=== PATIENT | male | born 1985 | race Two or more races ===

== ENCOUNTER 2025-07-09 11:08 | Emergency (ER) | payer MEDICAID, SELFPAY ==
[2025-07-09 11:09] VITALS: BMI 39.4
[2025-07-09 11:55] VITALS: BP 135/82; PULSE 87; RESP 20; TEMP 36.8; O2SAT 93
--- NOTE | 2025-07-09 12:07 | XR_ITS ---
EXAMINATION: PA lateral chest 2 views TECHNIQUE: Upright PA lateral chest 2 views Date and time: July 09, 2025, 12:25 p.m. INDICATIONS: Shortness of breath beginning 1 week ago. FINDINGS: Significant left lower lobe pneumonia. Normal heart size. Right lung clear. Osseous structures intact IMPRESSION: Significant left base pneumonia
--- NOTE | 2025-07-09 12:07 | EKG_ITS ---
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
--- NOTE | 2025-07-09 12:08 | PD.EDRME ---
Rapid Medical Screening Exam RME Arrival date/time: 07/09/25 11:08 Chief Complaint: Shortness of Breath/Dyspnea Vital signs: Vital Signs Temperature 98.3 F 07/09/25 11:55 Pulse Rate 87 07/09/25 11:55 Respiratory Rate 20 07/09/25 11:55 Blood Pressure 135/82 H 07/09/25 11:55 Pulse Oximetry (%) 93 L 07/09/25 11:55 Oxygen Delivery Method Room Air 07/09/25 11:55 RME Narrative: 40-year-old male complaining of cough with productive sputum, left-sided chest pain, shortness of breath x 1 week. I briefly performed a screening evaluation to initiate work-up and expedite care. Complete history, physical exam, and plan of care is deferred to the provider in the main ED. Exam: Head: Normocephalic, atraumatic. Respiratory: Normal effort. No respiratory distress or accessory muscle use. Neuro: Speech normal. Skin: Warm, dry, normal color. Psych: Pleasant. Normal affect. Cooperative. Clinical Impression: Cough
[2025-07-09 12:33] VITALS: PULSE 86
[2025-07-09] MEDS: IPRATROPIUM RT 0.5 MG/ 2.5 ML NEBU INH (12:33)
[2025-07-09] MEDS: ALBUTEROL RT 2.5 MG/0.5 ML NEBU 5 MG INH (12:33)
[2025-07-09 12:34] VITALS: PULSE 93; RESP 20; O2SAT 93
[2025-07-09] MEDS: ACETAMINOPHEN w/COD 300-30 TABLET 2 TAB PO (13:09)
[2025-07-09] MEDS: AZITHROMYCIN 250 MG TABLET 500 MG PO (13:36)
[2025-07-09] MEDS: cefTRIAXone 1,000 MG, LIDOCAINE 1% 20 ML 2.1 ML IM (13:36)
--- NOTE | 2025-07-09 13:50 | EDNOTE_ITS ---
Upper Respiratory Inf. RME/HPI General Chief Complaint: Shortness of Breath/Dyspnea Stated Complaint: DIFF BREATHING/COUGH x 13 DAYS Time Seen by Provider: 07/09/25 12:30 Arrival date/time: 07/09/25 11:08 RME / HPI RME / HPI Narrative: See [facility] for Dr. Hung's HPI Documentation. Related Data Previous Rx's ?Medication ?Instructions ?Recorded naproxen 500 mg tablet 500 mg PO BID PRN pain #14 t abs 08/17/23 acetaminophen 300 mg-codeine 30 mg 2 tab PO Q8H PRN pa in #20 tabs 07/09/25 tablet albuterol sulfate 90 mcg/actuation 2 puff inhalation Q 6H PRN 07/09/25 aerosol inhaler shortness of breath or wheez ing #8.5 grams azithromycin 500 mg tablet 500 mg PO QDAY 3 days #3 ta bs 07/09/25 (Zithromax TRI-LUIS) cefdinir 300 mg capsule 300 mg PO BID #14 caps 07/09 prednisone 50 mg tablet 50 mg PO BID 3 days #6 tabs 07/09/25 Allergies Allergy/AdvReac Type Severity Reaction Status Date / Time No Known Allergies Allergy Verified 07/09/25 11:12 Review of Systems Review of Systems Systems Reviewed: All systems reviewed, normal except as documented Past Medical History Social History SMOKING STATUS: Never smoker SUBSTANCE USE: does not use ALCOHOL: Never ED Exam Narrative Physical exam: See [facility] for Dr. Hung's HPI Documentation. Course Quality Measures none Orders Category Date Time Status Bedside COVID-19 Antigen Test NOW Care 07/09/25 12:30 Completed EKG (ED ONLY) *Do not use* NOW Care 07/09/25 12:07 Completed EKG (ED Only) Stat Exams 07/09/25 12:07 Draft XR chest 2V Stat Exams 07/09/25 12:07 Completed Influenza A & B Rapid Panel Stat Lab 07/09/25 13:46 Completed ACETAMINOPHEN w/COD 300-30 [Tylenol w/Cod #3] Med 07/09/25 12:30 Discontinued 2 tab PO X1 ONE ALBUTEROL RT 0.5ml [Proventil Rt 0.5ml] Med 07/09/25 12:09 Discontinued 5 mg INH X1 ONE Azithromycin Po [Zithromax PO] Med 07/09/25 13:04 Discontinued 500 mg PO X1 ONE Ipratropium [place] Rt Britt [Atrovent Rt Britt] Med 07/09/25 12:09 Discontinued 0.5 mg INH X1 ONE Sodium Chloride Rt Britt 0.9% [NS Rt Britt 0.9%] Med 07/09/25 12:09 Discontinued 3 ml INH PRN PRN cefTRIAXone [Rocephin] 1,000 mg Med 07/09/25 13:04 Discontinued Lidocaine 1% 20 ml [Xylocaine 1% 20 ML] 2.1 ml IM X1 predniSONE Med 07/09/25 12:30 Discontinued 60 mg PO X1 ONE Vital Signs Vital signs: Vital Signs Temperature 98.3 F 07/09/25 11:55 Pulse Rate 87 07/09/25 11:55 Respiratory Rate 20 07/09/25 11:55 Blood Pressure 135/82 H 07/09/25 11:55 Pulse Oximetry (%) 93 L 07/09/25 11:55 Oxygen Delivery Method Room Air 07/09/25 11:55 Upper Respiratory Infection MDM Narrative MDM Narrative:: This section includes all my notes and documentations, including HPI, PE, and ED course. Vahid Hung MD HPI: 40-year-old male here with about 10-day history of worsening cough, productive cough, purulent sputum, and dyspnea. No other complaints. ROS: All negative except as documented in HPI. Physical Exam: General: Alert and oriented. Hacking cough noted. Eyes: Conjunctivae and lids clear. ENT: No nasal congestion. Pharynx normal. TM normal bilaterally. Neck: Supple. Heart: RRR. Lungs: No respiratory distress. Decreased air movement with severe rhonchi. Abdomen: Soft and nontender. Back: No CVA tenderness. Skin: Warm and dry. Neuro: Alert and oriented X 3. I reviewed all diagnostic test results: My interpretation of the EKG is: Sinus rhythm (83 bpm) with nonspecific ST-T changes. My interpretation of the chest x-ray is left base infiltrates. Covid & Influenza negative. At this point, diagnoses include: Pneumonia with severe bronchospasm Treatment here included: Prednisone 60 mg Neb treatments Two Tylenol #3 Rocephin 1 g IM Zithromax 500 mg Significant improvement noted. Recommended outpatient treatment. Based on my best medical judgment, made decision no further evaluation or treatment indicated at this time. Patient understands and agrees to the discharge instructions customized and printed, see below. Discharge instructions from Dr. Hung: --No physical exertion for 3 days to help rest the lungs. ?No smoking or exposure to smoking or pets or dust or cold or humidity. --Zithromax and cefdinir to kill the germs causing the pneumonia. Can stop penicillin, this will take care of your strep throat. --Prednisone to help decrease the swelling in the airways. --Albuterol 2 puffs with a spacer every 4-6 hours for 3 days to help keep the airways open. Then as needed for cough or shortness of breath. --See a private doctor on 07/08/2025 for recheck. Ask for help until you are completely better. --Seek immediate medical care with worsening or with any concerns. Vahid Hung MD Patient data External records reviewed:: [facility] previous records Clinical information provided by:: patient Social determinants that could affect healthcare access:: none Patient has the following chronic illnesses:: No known PMHx, surgeries, daily medications, or known allergies. How is presenting disease/condition affected by chronic disease/condition?: no chronic disease Evaluation data The following diagnostics were reviewed and interpreted by me:: lab results, radiology exam(s) and EKG tracing(s) Lab and/or radiology exams considered but not ordered:: none Interpretation Summary: I reviewed all diagnostic test results: My interpretation of the EKG is: Sinus rhythm (83 bpm) with nonspecific ST-T changes. My interpretation of the chest x-ray is left base infiltrates. Covid & Influenza negative. Medications / Prescriptions Medications or Prescriptions considered but not ordered:: none Medication administrations:: Medication Administration History Discontinued Medications Acetaminophen/Codeine Phosphate (Acetaminophen W/Cod 300-30 Tablet) 2 tab PO X1 ONE Stop: 07/09/25 12:31 Last Admin: 07/09/25 13:09 Dose: 2 tab Documented By: Albuterol (Albuterol Rt 2.5 Mg/0.5 Ml Nebu) 5 mg INH X1 ONE Stop: 07/09/25 12:10 Last Admin: 07/09/25 12:33 Dose: 5 mg Documented By: STEVENSON Azithromycin (Azithromycin 250 Mg Tablet) 500 mg PO X1 ONE Stop: 07/09/25 13:05 Last Admin: 07/09/25 13:36 Dose: 500 mg Documented By: Ceftriaxone Sodium 1,000 mg/ (Lidocaine HCl 2.1 ml) 0 mg IM X1 ONE Stop: 07/09/25 13:05 Last Admin: 07/09/25 13:36 Dose: 1,000 mg Documented By: Ipratropium [place] (Ipratropium Rt 0.5 Mg/ 2.5 Ml Nebu) 0.5 mg INH X1 ONE Stop: 07/09/25 12:10 Last Admin: 07/09/25 12:33 Dose: 0.5 mg Documented By: STEVENSON Prednisone (Prednisone 20 Mg Tablet) 60 mg PO X1 ONE Stop: 07/09/25 12:31 Last Admin: 07/09/25 13:09 Dose: 60 mg Documented By: Sodium Chloride (Sodium Chloride Rt Britt 0.9% 3 Ml Nebu) 3 ml INH PRN PRN PRN Reason: SOLN Stop: 08/08/25 12:08 Treatment here included: Prednisone 60 mg Neb treatments Two Tylenol #3 Rocephin 1 g IM Zithromax 500 mg Consultations Consultation(s) initiated? (list below): No Diagnosis Upper Respiratory Differential Diagnosis: upper respiratory infection, viral infection, bronchitis and influenza Most likely diagnosis given after review of the tests above:: Pneumonia Admission Indicated Admission indicated?: not indicated Explain why admission is indicated or not indicated:: With significant improvement and no condition needing emergent intervention, there was no indication for admission. Admission Request Was there a request for admission?: No Disposition Plan Disposition Plan: Discharge Discharge Attestation Discharge Attestation: The patient and all family members were given an opportunity to ask questions and understood the discharge instructions. Discharge instructions specifically effects, indications for sooner follow up or return to the emergency department, and the expected course of current diagnosis. Patient condition: Stable Discharge Plan Plan Patient Disposition: HOME (Self Care) Prescriptions/Referrals Prescriptions/Med Rec: New acetaminophen-codeine 300-30 mg tablet 2 tab PO Q8H MDD 6 PRN (Reason: pain) Qty: 20 0RF prednisone 50 mg tablet 50 mg PO BID 3 Days Qty: 6 0RF albuterol sulfate 90 mcg/actuation HFA aerosol inhaler 2 puff inhalation Q6H PRN (Reason: shortness of breath or wheezing) Qty: 8.5 0RF cefdinir 300 mg capsule 300 mg PO BID Qty: 14 0RF azithromycin [Zithromax TRI-LUIS] 500 mg tablet 500 mg PO QDAY 3 Days Qty: 3 0RF No Action naproxen 500 mg tablet 500 mg PO BID PRN (Reason: pain) Qty: 14 0RF Referrals: El Amin MD [Primary Care Provider, Family Practice] - In 1 week Problem List Clinical Impression: Pneumonia Patient/Caregiver Discharge Instructions Discharge Activity: activity as tolerated Education Materials: ED Pneumonia (Adult) Additional Instructions: Discharge instructions from Dr. Hung: --No physical exertion for 3 days to help rest the lungs. ?No smoking or exposure to smoking or pets or dust or cold or humidity. --Zithromax and cefdinir to kill the germs causing the pneumonia. Can stop penicillin, this will take care of your strep throat. --Prednisone to help decrease the swelling in the airways. --Albuterol 2 puffs with a spacer every 4-6 hours for 3 days to help keep the airways open. Then as needed for cough or shortness of breath. --See a private doctor on 07/08/2025 for recheck. Ask for help until you are completely better. --Seek immediate medical care with worsening or with any concerns. Print Language: Turkish Stand Alone Forms: [employer] Award Info., Work/School Release, Patient Portal Info Letter
[2025-07-09 14:13] LABS: Influenza A Ag Negative; Influenza B Ag Negative
== END 2025-07-09 14:54 | disposition home or self-care (01) ==
PROVIDERS: Emergency Provider Emergency Medicine; PCP Family Medicine
DX: J18.9 Pneumonia, unspecified organism (principal)
CPT/HCPCS: 71046; 80053; 83605; 83690; 83880; 84484; 85025; 85610; 85730; 87040; 87502; 87635; 93005; 94640; 96372; 99284; J0696; J3490; J7512; J7644; A9270; J7611